=== PATIENT | female | born 1995 | race African-American/Black ===

== ENCOUNTER 2017-01-11 12:54 | Emergency (ER) | payer SELFPAY ==
--- NOTE | 2017-01-11 13:08 | ED Physician Documentation ---
General Adult - HISTORIAN Historian: patient - HPI Stated Complaint: dysuria Chief Complaint: General Adult Onset: days ago (3) Timing: still present Severity: moderate Further Comments: yes (Pt is a 21 yo female with dysuria, back pain, chills x 3 days. Pt has two other issues to inquire about while she's here. Pt states that she had a bloody bowel movement. Pt states she has lumps in her axilla b/ l and a swelling below her R breast.) - ROS CONST: no problems EYES/ENT: none CVS/RESP: none GI/: other (dysuria) - PAST HX Past History: none Allergies/Adverse Reactions: Allergies Allergy/AdvReac Type Severity Reaction Status Date / Time No Known Allergies Allergy Unverified 01/11/17 13:11 Home Medications: Ambulatory Orders Medication Instructions Recorded Ciprofloxacin HCl [Cipro] 500 mg PO BID #14 tablet 01/11/17 - SOCIAL HX Smoking History: cigarettes - FAMILY HX Family History: No - REVIEWED ASSESSMENTS Nursing Assessment Reviewed: Yes Vitals Reviewed: Yes Progress - Progress Progress: Rx Ciprofloxacin 500 mg. Take one by mouth every 12 hrs for 7 days. Hemocult neg. Pt will f/u this week with pcp re: lymphadenopathy and R breast swelling. General Adult Physical Exam - PHYSICAL EXAM GENERAL APPEARANCE: mild distress EENT: eye inspection normal, pharynx normal NECK: normal inspection, supple RESPIRATORY: no resp distress, chest non-tender, breath sounds normal CVS: reg rate & rhythm, heart sounds normal ABDOMEN: soft, normal bowel sounds, other (suprapubic tenderness) RECTAL: normal exam, normal rectal tone, heme negative stool BACK: normal inspection, no CVA tenderness SKIN: warm/dry, normal color, other (lymphadenopathy, axilla. Swelling R lower breast.) EXTREMITIES: non-tender, normal range of motion, no evidence of injury NEURO: oriented X3, motor nml, sensation nml Discharge Clincal Impression: R breast swelling UTI (urinary tract infection) Qualifiers: Urinary tract infection type: site unspecified Hematuria presence: without hematuria Qualified Code(s): N39.0 - Urinary tract infection, site not specified Prescriptions: Ciprofloxacin HCl [Cipro] 500 mg PO BID #14 tablet Referrals: Primary Doctor,No [Primary Care Provider] - Home Medications: Ambulatory Orders Ciprofloxacin HCl [Cipro] 500 mg PO BID #14 tablet 01/11/17 Condition: Good Disposition: 01 HOME, SELF-CARE Decision to Admit: NO Decision Time: 13:57
[2017-01-11 13:12] LABS: APPEARANCE,URINE CLEAR (CLEAR); COLOR,URINE YELLOW (YELLOW); OCCULT BLOOD,URINE NEGATIVE (NEGATIVE); PH URINE 5.5 (5.0 - 8.0); UROBILINOGEN URINE 0.2 Eu (0.2-1.0)
[2017-01-11 14:36] VITALS: BP 110/68
== END 2017-01-11 14:10 | disposition home or self-care (01) ==
LOC: ED 12:54
DX: N63 Unspecified lump in breast (principal); N39.0 Urinary tract infection, site not specified
CPT/HCPCS: 81002; 82272; 87086; 99283